=== PATIENT | male | born 1960 | race Caucasian/White ===

== ENCOUNTER 2024-05-02 06:26 | Outpatient (CLI) | payer BC, SELFPAY ==
--- NOTE | 2024-05-02 07:43 | W.ANESCHARGE ---
Anesthesia Charges Start Date/Time Anesthesia Start Date: 05/02/24 Anesthesia Start Time: 07:15 Stop Date/Time Anesthesia Stop Date: 05/02/24 Anesthesia Stop Time: 07:42 Coding CPT Codes CPT Codes: TESSIE LWR INTST SCR COLSC - [id number] ([id number]) P2 - PATIENT W/MILD SYST DISEASE, QX - FEEDER TENDER SVC W/ MD MED DIRECTION, QK - VACUUM FORM OPERATOR 2-4 CNCRNT ANES PROC
--- NOTE | 2024-05-02 08:00 | W.ANESCHARGE ---
Anesthesia Charges Start Date/Time Anesthesia Start Date: 05/02/24 Anesthesia Start Time: 07:15 Stop Date/Time Anesthesia Stop Date: 05/02/24 Anesthesia Stop Time: 07:42 Coding CPT Codes CPT Codes: TESSIE LWR INTST SCR COLSC - [id number] ([id number]) QK - LOG COOKER 2-4 CNCRNT TESSIE PROC, QX - OCC THERAPIST SVC W/ MD MED DIRECTION, P2 - PATIENT W/MILD SYST DISEASE
== END 2024-05-02 06:27 | disposition home or self-care (01) ==
PROVIDERS: Visit Provider Internal Medicine Gastroenterology
DX: Z12.11 Encounter for screening for malignant neoplasm of colon (principal)
CPT/HCPCS: 00812; 45378; J2704